=== PATIENT | male | born 2000 ===

== ENCOUNTER 2022-04-03 23:18 | Emergency (ER) | payer SELFPAY ==
[~2022-04-03] VITALS: Ht 167.7 cm; Wt 64.0 kg
[2022-04-03] MEDS ORDERED: TETANUS,DIPTH,PERTUSS P/F (BOOSTRIX) 0.5 ML VIAL IM ONE (23:30)
[2022-04-03] MEDS ORDERED: LACTATED RINGERS 1,000 ML IV ONE (23:30)
[2022-04-03 23:51] LABS: BASOPHILS # (AUTO) 0.1 10^3/uL (0.0-0.1); BASOPHILS % (AUTO) 0 % (0-10); EOSINOPHILS # (AUTO) 0.1 10^3/uL (0.0-0.3); EOSINOPHILS % (AUTO) 1 % (0-10); HEMATOCRIT 46 % (40-54); HEMOGLOBIN 15.8 g/dL (13.3-17.7); LYMPHOCYTES # (AUTO) 5.7 10^3/uL (1.0-4.0); LYMPHOCYTES % (AUTO) 43 % (12-44); MEAN CORPUSCULAR HEMOGLOBIN 31 pg (25-34); MEAN CORPUSCULAR HGB CONC 34 g/dL (32-36); MEAN CORPUSCULAR VOLUME 91 fL (80-99); MEAN PLATELET VOLUME 9.9 fL (9.0-12.2); MONOCYTES # (AUTO) 1.6 10^3/uL (0.0-1.0); MONOCYTES % (AUTO) 12 % (0-12); NEUTROPHILS # (AUTO) 5.8 10^3/uL (1.8-7.8); NEUTROPHILS % (AUTO) 44 % (42-75); PLATELET COUNT 295 10^3/uL (130-400); WHITE BLOOD COUNT 13.3 10^3/uL (4.3-11.0)
[2022-04-04 00:03] LABS: ALBUMIN 4.9 GM/DL (3.2-4.5); AMPHETAMINE SCREEN, URINE NEGATIVE (NEGATIVE); BACTERIA,URINE NEGATIVE /HPF; BARBITURATE SCREEN URINE NEGATIVE (NEGATIVE); BENZODIAZEPINES SCREEN URINE NEGATIVE (NEGATIVE); BILIRUBIN,URINE NEGATIVE (NEGATIVE); CANNABINOID SCREEN, URINE NEGATIVE (NEGATIVE); CLARITY,URINE CLEAR; COCAINE SCREEN URINE NEGATIVE (NEGATIVE); COLOR,URINE YELLOW; GLUCOSE, URINE (UA) NEGATIVE (NEGATIVE); KETONES,URINE NEGATIVE (NEGATIVE); LEUKOCYTE ESTERASE ,URINE NEGATIVE (NEGATIVE); METHADONE STAT NEGATIVE (NEGATIVE); NITRITE,URINE NEGATIVE (NEGATIVE); OPIATE SCREEN URINE NEGATIVE (NEGATIVE); OXYCODONE STAT NEGATIVE (NEGATIVE); PROPOXYPHENE STAT NEGATIVE (NEGATIVE); PROTEIN,URINE NEGATIVE (NEGATIVE); TRICYCLIC ANTIDEPRESSANTS SCRE NEGATIVE (NEGATIVE)
[2022-04-04 00:04] LABS: CHLORIDE 102 MMOL/L (98-107); POTASSIUM 3.3 MMOL/L (3.6-5.0); SODIUM 136 MMOL/L (135-145)
[2022-04-04 00:05] LABS: CALCIUM 9.8 MG/DL (8.5-10.1)
[2022-04-04 00:06] LABS: GLUCOSE 123 MG/DL (70-105); TOTAL PROTEIN 8.7 GM/DL (6.4-8.2)
[2022-04-04 00:07] LABS: CARBON DIOXIDE 16 MMOL/L (21-32)
[2022-04-04 00:08] LABS: BILIRUBIN,TOTAL 0.4 MG/DL (0.1-1.0)
[2022-04-04 00:09] LABS: ALKALINE PHOSPHATASE 105 U/L (40-136)
[2022-04-04 00:10] LABS: CREATININE SERUM 0.96 MG/DL (0.60-1.30); GFR ESTIMATED 114
[2022-04-04 00:11] LABS: BUN/CREATININE RATIO 9
[2022-04-04 00:13] LABS: ALANINE AMINOTRANSFERASE 283 U/L (0-55); LIPASE 27 U/L (8-78)
[2022-04-04] MEDS ORDERED: LACTATED RINGERS 1,000 ML IV ONE ×2 (00:15→02:15)
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
[2022-04-04] MEDS ORDERED: HOLD METFORMIN - RECEIVED CONTRAST 20 ML VIAL IV SCH (02:15)
[2022-04-04] MEDS ORDERED: NS 100 ML (IVPB) BAG IV ONE (02:15)
[2022-04-04] MEDS ORDERED: IOHEXOL 350 MG/ML 100 ML (OMNIPAQUE 350) VIAL IV ONE (02:15)
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
[2022-04-04 07:46] VITALS: BP 116/82
== END 2022-04-04 07:46 | disposition home or self-care (01) ==
LOC: ER 23:22
DX: U07.1 COVID-19 (principal); S52.502A Unspecified fracture of the lower end of left radius, initial encounter for closed fracture; S52.602A Unspecified fracture of lower end of left ulna, initial encounter for closed fracture; F10.129 Alcohol abuse with intoxication, unspecified; Z23 Encounter for immunization; Z28.310 Unvaccinated for COVID-19; V57.5XXA Driver of pick-up truck or van injured in collision with fixed or stationary object in traffic accident, initial encounter; Y92.410 Unspecified street and highway as the place of occurrence of the external cause
CPT/HCPCS: 29105; 70450; 71045; 71260; 72125; 72128; 72131; 73060; 73090; 73130; 74177; 80053; 80306; 81000; 83690; 85025; 87636; 93041; 99284; G0480; 36415; 80320; 90715